=== PATIENT | male | born 1990 | race Caucasian/White ===

== ENCOUNTER 2017-09-18 15:43 | Emergency (ER) | payer OTHER ==
[2017-09-18 15:54] VITALS: BP 129/66; PULSE 96; RESP 16; TEMP 98.1
--- NOTE | 2017-09-18 16:24 | ED ---
General Adult HPI - General Chief complaint: Skin/Abscess/Foreign Body Stated complaint: Wrist Pain Time Seen by Provider: 09/18/17 16:03 Source: patient, RN notes reviewed Mode of arrival: ambulatory Limitations: no limitations - History of Present Illness Initial comments: 27-year-old male sent to the emergency department for a chief complaint of ganglion cyst in the right wrist. Patient has been diagnosed with a cyst before and had it drained years ago. Patient states the cyst is now back. Patient states it has been there for quite some time and is now becoming somewhat painful. Patient states he has no insurance so cannot go to an orthopedic. However, he will have insurance in 2 weeks. Patient states he would like to have it drained in the emergency department either that or removed. Patient denies any numbness or tingling in the hands. Patient denies any pain anywhere else. Patient denies any injuries or fevers. Patient has no other complaints at this time including shortness of breath, chest pain, abdominal pain, nausea or vomiting, headache, or visual changes. - Related Data Home Medications Medication Instructions Recorded Confirmed No Known Home Medications [No 09/18/17 09/18/17 Known Home Medications] Allergies Allergy/AdvReac Type Severity Reaction Status Date / Time No Known Allergies Allergy Verified 09/18/17 15:54 Review of Systems ROS Statement: Those systems with pertinent positive or pertinent negative responses have been documented in the HPI. ROS Other: All systems not noted in ROS Statement are negative. Past Medical History Past Medical History: No Reported History History of Any Multi-Drug Resistant Organisms: None Reported Past Surgical History: No Surgical Hx Reported Past Psychological History: No Psychological Hx Reported Smoking Status: Current every day smoker Past Alcohol Use History: None Reported Past Drug Use History: None Reported General Exam Limitations: no limitations General appearance: alert, in no apparent distress Respiratory exam: Present: normal lung sounds bilaterally. Absent: respiratory distress, wheezes, rales, rhonchi, stridor Cardiovascular Exam: Present: regular rate, normal rhythm, normal heart sounds. Absent: systolic murmur, diastolic murmur, rubs, gallop, clicks Extremities exam: Present: tenderness (Very mild tenderness over the cyst on the wrist. No scaphoid tenderness. No tenderness elsewhere in the right wrist or hand.), normal capillary refill (Refill less than 2 seconds and radial pulse 2+.), other (There is a 1 cm x 1 cm ganglion cyst present in the dorsal right wrist.). Absent: full ROM (patient has full range of motion of the right wrist including flexion and extension and medial and lateral deviation.), joint swelling (No swelling noted in the wrist. No redness or cellulitic changes. No signs of infection. No breaks in the skin.) Course Vital Signs 09/18/17 15:52 Temperature 98.1 F Pulse Rate 96 Respiratory 16 Rate Blood Pressure 129/66 O2 Sat by Pulse 99 Oximetry Medical Decision Making - Medical Decision Making 27-year-old male presents to the emergency department for a chief complaint of ganglion cyst times years. Patient states it has been there for quite a while but is becoming bigger. Patient states he has been diagnosed with one before and had it drained. Patient denies any signs of infection or fever. On exam patient has full range of motion of the right wrist. Mild tenderness over the 1 cm x 1 cm ganglion cyst in the dorsal wrists. Patient has full range motion of all fingers in the right hand and sensation is intact. Radial pulse 2+ and capillary refill less than 2 seconds. No signs of infection. No numbness or tingling in the hand. Patient was educated that this needs to be excised by an orthopedist. If drained it will just come back. Patient will have insurance in 2 weeks and can follow up with an orthopedic surgeon at that time. He was given a referral number. He will return to the emergency department if he has any worsening symptoms. He can take Motrin for pain or Tylenol. Otherwise he will follow-up. Disposition Clinical Impression: Ganglion cyst Disposition: HOME SELF-CARE Condition: Good Instructions: Ganglion Cysts (ED) Additional Instructions: Please take Motrin or Tylenol for pain. Please follow-up with orthopedics. Return to the emergency department if symptoms worsen. Is patient prescribed a controlled substance at d/c from ED?: No Referrals: Julian Jeter DO [Doctor of Osteopathic Medicine] - 1-2 days Rigoberto Mayes MD [STAFF PHYSICIAN] - 1-2 days Time of Disposition: 16:33
== END 2017-09-18 16:39 | disposition home or self-care (01) ==
LOC: EC 15:43
DX: M67.431 Ganglion, right wrist (principal); F17.200 Nicotine dependence, unspecified, uncomplicated
CPT/HCPCS: 99283